=== PATIENT | female | born 1970 | race Caucasian/White ===

== ENCOUNTER 2021-06-16 14:44 | Emergency (ER) | payer MEDICAID ==
[~2021-06-16] VITALS: Ht 165.1 cm; Wt 63.6 kg
[2021-06-16 14:53] VITALS: BP 141/93
== END 2021-06-16 20:05 | disposition left against medical advice (07) ==
LOC: ER 14:45
DX: T15.92XA Foreign body on external eye, part unspecified, left eye, initial encounter (principal); T15.91XA Foreign body on external eye, part unspecified, right eye, initial encounter; H57.13 Ocular pain, bilateral; Z88.0 Allergy status to penicillin; X58.XXXA Exposure to other specified factors, initial encounter; Y93.89 Activity, other specified; Y92.89 Other specified places as the place of occurrence of the external cause; Y99.8 Other external cause status
CPT/HCPCS: 99283